=== PATIENT | female | born 1985 ===

== ENCOUNTER 2020-01-18 08:00 | Inpatient (IN) | payer OTHER ==
[2020-01-18] MEDS ORDERED: PROMETHAZINE HCL 25 MG/1 ML VIAL IVPUSH ONE (10:07)
[2020-01-18] MEDS ORDERED: BUTORPHANOL TARTRATE 1 MG/ML VIAL IVPB ONE ×2 (10:07→20:20)
[2020-01-18] MEDS ORDERED: DINOPROSTONE 10 MG VAGINAL SUPPOSITORY VG ONE (10:10)
--- NOTE | 2020-01-18 10:13 | HP ---
Past Medical History - Primary Care Physician PCP:: Donna Holley - Admission Chief Complaint: scheduled IOL due to GMA1 History Source: Family Member (Patient Spanish speaker - requested that family member translate) Limitations to Obtaining History: Language Barrier - Past Medical History ...: 3 ...Para: 2 ... Weeks Gestation by Dates: 39.6 ...EDC by Dates: 01/19/20 - Past Surgical History Past Surgical History: Yes: None Hx Myomectomy: No Hx Transabdominal Cerclage: No - Smoking History Smoking history: Never smoked - Alcohol/Substance Use Hx Alcohol Use: No History of Substance Use: reports: None Review of Systems - Review of Systems Constitutional: reports: No Symptoms Cardiovascular: reports: No Symptoms Respiratory: reports: No Symptoms Gastrointestinal: reports: No Symptoms Genitourinary: reports: No Symptoms Breasts: reports: No Symptoms Reported Musculoskeletal: reports: No Symptoms Neurological: reports: No Symptoms Psychiatric: reports: No Symptoms Physical Exam - Maternity Constitutional: Yes: No Distress, Calm Cardiovascular: Yes: Regular Rate and Rhythm Lungs: Clear to auscultation Breast(s): Yes: WNL - Abdominal Exam/OB Fundal Height: 40 Number of Fetuses: Single Presentation: Vertex Contractions: No Category: I - Vaginal Exam/OB Vaginal Bleeding: No Dilatation (cm): 1 Effacement (%): 0 Amniotic Membrane Status: Intact Presentation: Vertex/Position Station: -3 - Physical Exam Musculoskeletal: Yes: WNL Extremities: Yes: WNL Edema: No ...Motor Strength: WNL Psychiatric: Yes: Alert, Oriented Assessment/Plan 34 y/o at 39w6d scheduled for IOL due to GDMA1. Admit to L&D Cervidil placed EFM and toco Reassess
[2020-01-18 11:58] LABS: BASO % 0.7 % (0-2.0); EOS % 4.1 % (0-4.5); HEMATOCRIT 33.5 % (32.4-45.2); HEMOGLOBIN 10.8 GM/dL (10.7-15.3); LYMPH % 20.8 % (8-40); MCH 26.4 pg (25.7-33.7); MCHC 32.1 g/dl (32.0-36.0); MEAN CELL VOLUME 82.3 fl (80-96); MEAN PLT VOLUME 9.9 fl (7.5-11.1); MONO % 7.1 % (3.8-10.2); NEUT % 67.3 % (42.8-82.8); PLATELET COUNT 140 K/MM3 (134-434); RBC 4.07 M/mm3 (3.60-5.2); WHITE BLOOD COUNT 6.6 K/mm3 (4.0-10.0)
[2020-01-18 12:06] LABS: INR 0.88 (0.83-1.09); PROTHROMBIN TIME (PATIENT) 10.4 SEC (9.7-13.0)
[2020-01-18 12:08] LABS: ACTIVATED PTT 25.7 SECONDS (25.2-36.5)
[2020-01-18 12:38] LABS: BLOOD UREA NITROGEN 8.1 mg/dL (7-18); CALCIUM 8.4 mg/dL (8.5-10.1); CREATININE 0.6 mg/dL (0.55-1.3); POTASSIUM 4.2 mmol/L (3.5-5.1)
[2020-01-18 14:35] VITALS: BMI 26.9
[2020-01-18] MEDS ORDERED: PROMETHAZINE HCL 25 MG/1 ML VIAL IVPB ONE (20:20)
[2020-01-18] MEDS ORDERED: LACTATED RINGERS SOLUTION 1,000 ML IV SCH (21:15)
[2020-01-18] MEDS ORDERED: PROMETHAZINE HCL 25 MG/1 ML VIAL ONE (22:27)
[2020-01-18] MEDS ORDERED: BUTORPHANOL TARTRATE 2 MG/ML VIAL ONE (22:27)
[2020-01-18] MEDS ORDERED: OXYTOCIN 30 UNITS in 0.9% NS 30 UNIT/500 ML INFUS.BAG IVPB ONE (23:40)
[2020-01-18] MEDS ORDERED: OXYTOCIN 30 UNITS in 0.9% NS 30 UNIT/500 ML INFUS.BAG IVPB SCH (23:45)
[2020-01-19] MEDS ORDERED: PCA PUMP NR ONE ×2 (02:00→07:23)
[2020-01-19] MEDS ORDERED: FENTANYL/BUPIVACAINE/NS/PF - PCEA - 50 ML DISP.SYRIN EP ONE ×2 (02:00→02:38)
[2020-01-19] MEDS: ELECTROLYTE-148 SOLN 1,000 ML IV SCH ×2 (02:30→06:00)
[2020-01-19] MEDS: FENTANYL/BUPIVACAINE/NS/PF - PCEA - 50 ML DISP.SYRIN EP SCH (02:35)
[2020-01-19] MEDS ORDERED: NALOXONE HCL 0.4 MG/ML VIAL IVPUSH PRN (02:53)
[2020-01-19] MEDS ORDERED: ePHEDrine SULFATE 50 MG/1 ML AMPULE ONE (02:56)
[2020-01-19] MEDS ORDERED: LIDOCAINE HCL 1% PRESERVATIVE FREE - 30ML VIAL ONE (06:26)
[2020-01-19] MEDS ORDERED: OXYTOCIN 20 UNITS in 0.9% NS 20 UNIT/1,000 ML INFUS.BAG IV ONE (06:26)
--- NOTE | 2020-01-19 06:36 | PN ---
Progress Note (short form) - Note Progress Note: 34 y/o at 40w0d undergoing IOL due to GDMA1. Patient feels urge to push. On Pitocin, s/p epidural VE: anterior lip/0 station Tracing category 1 Contractions q2-3min Plan: Continue Pitocin Anticipate
--- NOTE | 2020-01-19 08:55 | PN ---
Delivery - Delivery Vaginal Delivery: Vacuum Assist (Patient very combative during delivery, would not open legs and was climbing towards the head of the bed, was hyperventilating and lost consciousness for approximately 1 minute, rapid response called and by the time they arrived patient had regained consciousness after sternal rub, patient very uncooperative and verbal consent was obtained for VAVD with patient's sister used as religious leader. head was at +3 station, MARK position, bladder empty, Kiwi vacuum applied and after 1 pop-off infant delivered without difficulty. Placenta delivered complete and intact. Brisk bleeding noted, fundus not firm, bilateral uterine massage attempted but patient would not allow. Methergine administered IM and then fundus found to be firm and good hemostasis noted. Vaginal vault and rectum inspected and no lacerations noted.) Type of Anesthesia: Epidural Episiotomy/Laceration: None EBL (cc): 450 Delivery, Single - Stages of Labor Placenta: Yes: Spontaneous - Condition of Balance Wheel Motion Inspector/Life Science Taxonomist Present: Yes Infant Gender: Female Position: Right, OA - 1 Minute Total Score: 9 5 Minutes Total Score: 9 - [place] Feeding Plan Initial Plan: Exclusive throughout hospitalization
[2020-01-19] MEDS ORDERED: BISACODYL 10 MG SUPP.RECT RC PRN (09:02)
[2020-01-19] MEDS ORDERED: METHYLERGONOVINE MALEATE 0.2 MG/1 ML AMP IM PRN (09:02)
[2020-01-19] MEDS ORDERED: BENZOCAINE 28 GM HEMORRHOIDAL OINTMENT TP PRN (09:02)
[2020-01-19] MEDS ORDERED: BENZOCAINE 20% 57 GM BOTTLE TP PRN (09:02)
[2020-01-19] MEDS ORDERED: WITCH HAZEL 50% (TUCKS) 40 PAD/JAR PAD TP PRN (09:02)
[2020-01-19] MEDS ORDERED: METHYLERGONOVINE MALEATE 0.2 MG/1 ML AMP IM ONE (09:07)
[2020-01-19] MEDS: IBUPROFEN 600 MG TABLET (FP) PO PRN ×2 (11:16→20:36)
[2020-01-19] MEDS: ACETAMINOPHEN 325 MG TABLET (FP) PO PRN ×2 (11:17→20:35)
[2020-01-19] MEDS: PRENATAL VITAMINS W/ FOLIC ACID TABLET (FP) PO SCH (11:17)
[2020-01-20 07:51] LABS: BASO % 0.5 % (0-2.0); EOS % 1.8 % (0-4.5); HEMATOCRIT 25.7 % (32.4-45.2); HEMOGLOBIN 8.3 GM/dL (10.7-15.3); LYMPH % 16.4 % (8-40); MCH 26.5 pg (25.7-33.7); MCHC 32.2 g/dl (32.0-36.0); MEAN CELL VOLUME 82.3 fl (80-96); MEAN PLT VOLUME 9.4 fl (7.5-11.1); MONO % 6.5 % (3.8-10.2); NEUT % 74.8 % (42.8-82.8); PLATELET COUNT 143 K/MM3 (134-434); RBC 3.12 M/mm3 (3.60-5.2); WHITE BLOOD COUNT 9.5 K/mm3 (4.0-10.0)
[2020-01-20] MEDS: IBUPROFEN 600 MG TABLET (FP) PO PRN ×2 (07:56→20:30)
[2020-01-20] MEDS: ACETAMINOPHEN 325 MG TABLET (FP) PO PRN ×2 (07:57→20:31)
--- NOTE | 2020-01-20 09:10 | PN ---
Progress Note (short form) - Note Progress Note: PPD#1: patient comfortable; no complains afebrile abdomen soft, non tender; uterus firm lochia normal I/P: doing well; s/p vacuum; anemia iron pills
[2020-01-20] MEDS: PRENATAL VITAMINS W/ FOLIC ACID TABLET (FP) PO SCH (10:57)
[2020-01-20] MEDS: FERROUS SO4 325 MG TABLET (FP) PO SCH (10:57)
[2020-01-20] MEDS: FENTANYL/BUPIVACAINE/NS/PF - PCEA - 50 ML DISP.SYRIN EP SCH (21:02)
[2020-01-20] MEDS ORDERED: SENNOSIDES/DOCUSATE COMBO (SENNA PLUS) TABLET (UD) PO PRN (22:00)
[2020-01-21] MEDS: FERROUS SO4 325 MG TABLET (FP) PO SCH (09:12)
[2020-01-21] MEDS: ACETAMINOPHEN 325 MG TABLET (FP) PO PRN (09:12)
[2020-01-21] MEDS: IBUPROFEN 600 MG TABLET (FP) PO PRN (09:12)
[2020-01-21] MEDS: PRENATAL VITAMINS W/ FOLIC ACID TABLET (FP) PO SCH (09:13)
[2020-01-21 10:03] VITALS: BP 119/70; PULSE 87; TEMP 97.6
--- NOTE | 2020-01-21 12:03 | PN ---
Post Progress Note Post Day: 2 Type of Delivery: Vacuum Assist Vag Del Vital Signs: Vital Signs Temperature 97.6 F 01/21/20 09:52 Pulse Rate 87 01/21/20 09:52 Respiratory Rate 18 01/21/20 09:52 Blood Pressure 119/70 01/21/20 09:52 O2 Sat by Pulse Oximetry (%) 99 01/19/20 07:15 Breast Exam: Yes: Soft Uterus: Yes: Fundus Firm, Fundus below umbilicus, Non-tender Abdomen/GI: Yes: Abdomen soft, Tolerating PO Lochia: Yes: Rubra Lochia, amount: Small Extremities: Yes: Calves non-tender Activity: Ambulating - Labs Labs: CBC WBC 9.5 K/mm3 (4.0-10.0) 01/20/20 07:35 RBC 3.12 M/mm3 (3.60-5.2) L 01/20/20 07:35 Hgb 8.3 GM/dL (10.7-15.3) L 01/20/20 07:35 Hct 25.7 % (32.4-45.2) L D 01/20/20 07:35 MCV 82.3 fl (80-96) 01/20/20 07:35 MCH 26.5 pg (25.7-33.7) 01/20/20 07:35 MCHC 32.2 g/dl (32.0-36.0) 01/20/20 07:35 RDW 16.0 % (11.6-15.6) H 01/20/20 07:35 Plt Count 143 K/MM3 (134-434) 01/20/20 07:35 MPV 9.4 fl (7.5-11.1) 01/20/20 07:35 Absolute Neuts (auto) 7.1 K/mm3 (1.5-8.0) 01/20/20 07:35 Neutrophils % 74.8 % (42.8-82.8) 01/20/20 07:35 Lymphocytes % 16.4 % (8-40) D 01/20/20 07:35 Monocytes % 6.5 % (3.8-10.2) 01/20/20 07:35 Eosinophils % 1.8 % (0-4.5) 01/20/20 07:35 Basophils % 0.5 % (0-2.0) 01/20/20 07:35 Nucleated RBC % 0 % (0-0) 01/20/20 07:35 Assessment/Plan S/P Vacuum assisted vaginal delivery, ppd # 2 stable Discharge home.
--- NOTE | 2020-01-21 12:05 | DS ---
Physical Exam-MEMORIAL DESIGNER Vital Signs: Vital Signs Temperature 97.6 F 01/21/20 09:52 Pulse Rate 87 01/21/20 09:52 Respiratory Rate 18 01/21/20 09:52 Blood Pressure 119/70 01/21/20 09:52 O2 Sat by Pulse Oximetry (%) 99 01/19/20 07:15 Constitutional: Yes: Well Nourished Eyes: Yes: WNL HENT: Yes: WNL Neck: Yes: WNL Cardiovascular: Yes: WNL Respiratory: Yes: WNL Gastrointestinal: Yes: WNL ...Rectal Exam: Yes: WNL Renal/: Yes: WNL Pelvis: Yes: WNL Vaginal Exam: Yes: Normal Cervix: Yes: Normal, Cyst Uterus: Yes: Normal Adnexa: Normal: Bilateral ....Post : Yes: Uterus firm, Uterus non-tender, Slight lochia rubra Breast(s): Yes: WNL Musculoskeletal: Yes: WNL Extremities: Yes: WNL Edema: No Integumentary: Yes: WNL Neurological: Yes: WNL ...Motor Strength: WNL Psychiatric: Yes: WNL Labs: CBC, BMP 01/20/20 07:35 01/18/20 11:07 Delivery - Delivery Vaginal Delivery: Vacuum Assist (Patient very combative during delivery, would not open legs and was climbing towards the head of the bed, was hyperventilating and lost consciousness for approximately 1 minute, rapid response called and by the time they arrived patient had regained consciousness after sternal rub, patient very uncooperative and verbal consent was obtained for VAVD with patient's sister used as histotechnologist. head was at +3 station, MARK position, bladder empty, Kiwi vacuum applied and after 1 pop-off infant delivered without difficulty. Placenta delivered complete and intact. Brisk bleeding noted, fundus not firm, bilateral uterine massage attempted but patient would not allow. Methergine administered IM and then fundus found to be firm and good hemostasis noted. Vaginal vault and rectum inspected and no lacerations noted.) Type of Anesthesia: Epidural Episiotomy/Laceration: None EBL (cc): 450 Delivery, Single - Stages of Labor Date 1st Stage Initiatied: 01/18/20 Time 1st Stage Initiated: 18:00 Date 2nd Stage Initiated: 01/19/20 Time 2nd Stage Initiated: 07:55 Date of Delivery: 01/19/20 Time of Delivery: 08:21 Time Placenta Delivered: 08:25 Placenta: Yes: Spontaneous - Condition of Infant Accessibility Lift Technician/Group Leader Wafer Polishing Present: No Infant Gender: Female Position: Right, OA Total Hours ROM (Hrs/Mins): 45M - 1 Minute Total Score: 9 5 Minutes Total Score: 8 - Feeding Plan Initial Plan: Exclusive throughout hospitalization Discharge Summary Problems reviewed: Yes Reason For Visit: LABOR Condition: Stable - Instructions Disposition: HOME - Home Medications Comprehensive Discharge Medication List: Ambulatory Orders Vitamins (Sjr) - 1 tab PO DAILY 01/18/20
== END 2020-01-21 13:35 | disposition home or self-care (01) | DRG 560 ==
LOC: JLDR 08:00 → J3W 01-19 10:30
PROVIDERS: ADMIT Obstetrics & Gynecology; ATTEND Obstetrics & Gynecology
PROC: 3E0P7VZ Introduction of Hormone into Female Reproductive, Via Natural or Artificial Opening (ICD-10-PCS; 2020-01-18)
PROC: 10D07Z6 Extraction of Products of Conception, Vacuum, Via Natural or Artificial Opening (ICD-10-PCS; principal; 2020-01-19)
DX: O24.420 Gestational diabetes mellitus in childbirth, diet controlled (principal); O48.0 Post-term pregnancy; O35.0XX0 Maternal care for (suspected) central nervous system malformation in fetus, not applicable or unspecified; Z3A.40 40 weeks gestation of pregnancy; O90.81 Anemia of the puerperium; D64.9 Anemia, unspecified; Z37.0 Single live birth
CPT/HCPCS: 36415; 59409; 80048; 82962; 85025; 85610; 85730; 86762; 86780; 86850; 86900; 86901; 87340; U0003